=== PATIENT | male | born 1970 | race American Indian/Alaskan Native ===

== ENCOUNTER 2017-05-27 12:45 | Emergency (ER) | payer BC, OTHER ==
[2017-05-27 12:53] VITALS: BMI 38.0
[2017-05-27 12:56] VITALS: TEMP 98
[2017-05-27] MEDS ORDERED: TraMADol/Apap 37.5/325 mg Tab PO STA (13:27)
--- NOTE | 2017-05-27 13:33 | ED PDOC ---
Arrival/HPI - General Chief Complaint: Lower Extremity Problem/Injury Time Seen by Provider: 05/27/17 13:03 Historian: Patient - History of Present Illness Narrative History of Present Illness (Text): 05/27/17 13:20 A 46 year old male, whose past medical history gout, presents to the emergency department complaining of right knee swelling since yesterday. Patient reports when he woke up yesterday, he found his knee swollen and has not been able to ambulate well. 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 He doesn't recall any incident at work that would have caused the swelling. Patient denies of any fever, chest pain, shortness of breath, or any other complaints. Also, patient notes having taken Motrin, which slightly helped with associated pain. No PMD Time/Duration: 24 hours Symptom Onset: Sudden Symptom Course: Unchanged Past Medical History - Provider Review Nursing Documentation Reviewed: Yes - Infectious Disease Hx of Infectious Diseases: None - Tetanus Immunization Tetanus Immunization: Unknown - Cardiac Hx Cardiac Disorders: Yes Hx Hypertension: Yes - Pulmonary Hx Respiratory Disorders: No - Neurological Hx Neurological Disorder: No - HEENT Hx HEENT Disorder: No - Renal Hx Renal Disorder: No - Endocrine/Metabolic Hx Endocrine Disorders: No - Hematological/Oncological Hx Blood Disorders: No - Integumentary Hx Dermatological Disorder: No - Musculoskeletal/Rheumatological Hx Gout: Yes (hx of) - Gastrointestinal Hx Gastrointestinal Disorders: No - Genitourinary/Gynecological Hx Genitourinary Disorders: No - Psychiatric Hx Physical Abuse: No Hx Substance Use: No - Past Surgical History Past Surgical History: No Previous - Anesthesia Hx Anesthesia: No Hx Anesthesia Reactions: No Hx Malignant Hyperthermia: No - Suicidal Assessment Feels Threatened In Home Enviroment: No Family/Social History - Physician Review Nursing Documentation Reviewed: Yes Family/Social History: No Known Family HX Smoking Status: Light Smoker < 10 Cigarettes Daily Hx Alcohol Use: Yes Hx Substance Use: No Hx Substance Use Treatment: No Allergies/Home Meds Allergies/Adverse Reactions: Allergies No Known Allergies Allergy (Verified 05/27/17 12:53) Home Medications: Home Meds Medication Instructions Recorded Confirmed No Known Home Med 05/27/17 05/27/17 Review of Systems - Review of Systems Constitutional: absent: Fevers Respiratory: absent: SOB Cardiovascular: absent: Chest Pain Musculoskeletal: Joint Swelling (right knee swelling with associated pain) Physical Exam Vital Signs Reviewed: Yes Vital Signs Temp Pulse Resp BP Pulse Ox 05/27/17 12:55 98.0 F 76 19 162/98 H 94 L Temperature: Afebrile Blood Pressure: Hypertensive Pulse: Regular Respiratory Rate: Normal Appearance: Positive for: Well-Appearing Pain Distress: None Mental Status: Positive for: Alert and Oriented X 3 Medical Decision Making ED Course and Treatment: 05/27/17 13:26 Impression: 46 year old male with right knee swelling with associated pain. No erythema with FROM with no evidence of infection. Differential: Sprain vs gout Plan: -- Right Knee X-ray -- Colocrys -- Toradol -- Ultracet -- Reassess and disposition Prior Visits: Notes and results from previous visits were reviewed. Patient was last seen in the emergency department on 12/15/2015 for left foot pain. Patient was discharged. Progress Notes: 05/27/2017 Right Knee X-Ray IMPRESSION: No interval fracture or lytic lesion. Interval anterior superior patellar cortical spurring - blending quadriceps tendon insertional enthesophyte Trace lateral patellar [id number] Dictator: Janice Chu MD 05/27/17 14:51 Patient is feeling much better s/p meds and is ambulating well. x-ray as noted - will d/c on nsaid, colchicine, and tramadol and knee immobilizer and f/u ortho. - RAD Interpretation Radiology Orders: 05/27/17 13:29 KNEE W PATELLA RIGHT 3 VIEW [RAD] Stat - Medication Orders Current Medication Orders: Discontinued Medications Colchicine (Colocrys) 1.2 mg PO ONCE STA Stop: 05/27/17 13:29 Last Admin: 05/27/17 14:06 Dose: 1.2 mg Ketorolac Tromethamine (Toradol) 60 mg IM STAT STA Stop: 05/27/17 13:28 Last Admin: 05/27/17 14:05 Dose: 60 mg [facility] [place] Pain Assessment Document 05/27/17 14:05 HI (Rec: 05/27/17 14:06 [email or web address]) Pain Reassessment Is this a pain reassessment? No Sleep Is patient sleeping during reassessment? No Presence of Pain Presence of Pain Yes Pain Scale Used Pain Scale Used Numeric Location Left, Right or Bilateral Right Pain Location Body Site Knee IM Administration Charges Document 05/27/17 14:05 HI (Rec: 05/27/17 14:06 [email or web address]) Charges for Administration # of IM Administrations 1 Tramadol/Acetaminophen (Ultracet 37.5/325 Mg) 2 tab PO STAT STA Stop: 05/27/17 13:28 Last Admin: 05/27/17 14:06 Dose: 2 tab MAR Pain Assessment Document 05/27/17 14:06 HI (Rec: 05/27/17 14:06 [place] [email or web address]) Pain Reassessment Is this a pain reassessment? No Sleep Is patient sleeping during reassessment? No Presence of Pain Presence of Pain Yes Pain Scale Used Pain Scale Used Numeric Location Left, Right or Bilateral Right Pain Location Body Site Knee - Scribe Statement The provider has reviewed the documentation as recorded by the Ravin Boyd Provider Scribe Attestation: All medical record entries made by the Scribe were at my direction and personally dictated by me. I have reviewed the chart and agree that the record accurately reflects my personal performance of the history, physical exam, medical decision making, and the department course for this patient. I have also personally directed, reviewed, and agree with the discharge instructions and disposition. Disposition/Present on Arrival - Present on Arrival Any Indicators Present on Arrival: No History of DVT/PE: No History of Uncontrolled Diabetes: No Urinary Catheter: No History of Decub. Ulcer: No History Surgical Site Infection Following: None - Disposition Have Diagnosis and Disposition been Completed?: Yes Diagnosis: Knee pain, Enthesopathy, knee Disposition: HOME/ ROUTINE Disposition Time: 14:50 Patient Plan: Discharge Condition: GOOD Discharge Instructions (ExitCare): Knee Pain (ED) Forms: [employer] (Khmer)
--- NOTE | 2017-05-27 14:20 | RAD ---
PROCEDURE: Right Knee Radiographs. HISTORY: R knee pain and swelling COMPARISON: 09/21/2014 FINDINGS: BONES: No fracture. Interval progressive anterior superior patellar cortical spurring/ blending quadriceps tendon insertional enthesophyte. JOINTS: No osteoarthritis. JOINT EFFUSION: None. OTHER FINDINGS: Trace lateral patellar tilt similar appearing IMPRESSION: No interval fracture or lytic lesion. Interval anterior superior patellar cortical spurring - blending quadriceps tendon insertional enthesophyte Trace lateral patellar [id number]
[2017-05-27 15:44] VITALS: BP 160/82; PULSE 70; RESP 16; O2SAT 100
== END 2017-05-27 15:10 | disposition home or self-care (01) ==
LOC: ED 12:45
DX: M25.561 Pain in right knee (principal); M76.9 Unspecified enthesopathy, lower limb, excluding foot
CPT/HCPCS: 73562; 96372; 99283; J1885

== ENCOUNTER 2018-05-12 15:47 | Emergency (ER) | payer BC ==
[2018-05-12 15:47] VITALS: BMI 38.0
[2018-05-12 16:07] VITALS: BP 115/75; O2SAT 98
--- NOTE | 2018-05-12 16:35 | ED PDOC ---
Arrival/HPI - General Chief Complaint: Lower Extremity Problem/Injury Time Seen by Provider: 05/12/18 16:33 Historian: Patient - History of Present Illness Narrative History of Present Illness (Text): 05/12/18 16:34 47yo male with no pmhx who present with complaint of right knee pain x 3weeks. States he saw his PMD for the knee pain and was referred for knee xray and uric acid level was drawn. He did the xray today and came to ED for analgesic. States he took Ibuprofen last night and this morning with relieve. Notes that pain is usually with ambulation. Denies trauma, redness, fever, any other complaint. Past Medical History - Provider Review Nursing Documentation Reviewed: Yes - Infectious Disease Hx of Infectious Diseases: None - Tetanus Immunization Tetanus Immunization: Unknown - Cardiac Hx Cardiac Disorders: No - Pulmonary Hx Respiratory Disorders: No - Neurological Hx Neurological Disorder: No - HEENT Hx HEENT Disorder: No - Renal Hx Renal Disorder: No - Endocrine/Metabolic Hx Endocrine Disorders: No - Hematological/Oncological Hx Blood Disorders: No - Integumentary Hx Dermatological Disorder: No - Musculoskeletal/Rheumatological Hx Gout: Yes (hx of) - Gastrointestinal Hx Gastrointestinal Disorders: No - Genitourinary/Gynecological Hx Genitourinary Disorders: No - Psychiatric Hx Physical Abuse: No Hx Substance Use: No - Past Surgical History Past Surgical History: No Previous - Anesthesia Hx Anesthesia: No Hx Anesthesia Reactions: No Hx Malignant Hyperthermia: No - Suicidal Assessment Feels Threatened In Home Enviroment: No Family/Social History - Physician Review Nursing Documentation Reviewed: Yes Family/Social History: Unknown Family HX Smoking Status: Light Smoker < 10 Cigarettes Daily Hx Alcohol Use: Yes Frequency of alcohol use: Socially Hx Substance Use: No Hx Substance Use Treatment: No Allergies/Home Meds Allergies/Adverse Reactions: Allergies No Known Allergies Allergy (Verified 05/27/17 12:53) Review of Systems - Physician Review All systems were reviewed & negative as marked: Yes - Review of Systems Constitutional: Normal Eyes: Normal ENT: Normal Respiratory: Normal Cardiovascular: Normal Gastrointestinal: Normal Genitourinary Male: Normal Musculoskeletal: Arthralgias (Right knee pain) Skin: Normal Neurological: Normal Endocrine: Normal Hemo/Lymphatic: Normal Psychiatric: Normal Physical Exam Vital Signs Reviewed: Yes Vital Signs Temp Pulse Resp BP Pulse Ox 05/12/18 17:19 98.2 F 87 19 98 05/12/18 16:03 98.9 F 84 18 115/75 98 Temperature: Afebrile Blood Pressure: Normal Pulse: Regular Respiratory Rate: Normal Appearance: Positive for: Well-Appearing, Non-Toxic, Comfortable Pain Distress: None Mental Status: Positive for: Alert and Oriented X 3 - Systems Exam Head: Present: Atraumatic, Normocephalic Pupils: Present: PERRL Extroacular Muscles: Present: EOMI Conjunctiva: Present: Normal Mouth: Present: Moist Mucous Membranes Neck: Present: Normal Range of Motion Respiratory/Chest: Present: Clear to Auscultation, Good Air Exchange. No: Respiratory Distress, Accessory Muscle Use Cardiovascular: Present: Regular Rate and Rhythm, Normal S1, S2. No: Murmurs Abdomen: No: Tenderness, Distention, Peritoneal Signs Back: Present: Normal Inspection Upper Extremity: Present: Normal Inspection. No: Cyanosis, Edema Lower Extremity: Present: NORMAL PULSES, Normal ROM, Neurovascularly Intact. No : Edema, Tenderness, Swelling Neurological: Present: GCS=15, CN II-XII Intact, Speech Normal Skin: Present: Warm, Dry, Normal Color. No: Rashes Psychiatric: Present: Alert, Oriented x 3, Normal Insight, Normal Concentration Medical Decision Making ED Course and Treatment: 05/12/18 19:33 PT presented for stated history. He ambulated to the ED. No erythema. No sign of cellulitis was noted. His xray ordered by his PMD was reviewed and DJD was noted. Case was DW Dr. Constantino, while he was in ED and he stated that he will see pt tomorrow in the office. Pt's pain improved in ED with medication and he was instructed to f/u with Dr. Constantino tomorrow. - Medication Orders Current Medication Orders: Discontinued Medications Ketorolac Tromethamine (Toradol) 60 mg IM STAT STA Stop: 05/12/18 16:35 Last Admin: 05/12/18 17:06 Dose: 60 mg [facility] Pain Assessment Document 05/12/18 17:06 [email or web address] (Rec: 05/12/18 17:07 [email or web address] [id number]) Pain Reassessment Is this a pain reassessment? No Sleep Is patient sleeping during reassessment? No Presence of Pain Presence of Pain Yes Pain Scale Used Pain Scale Used Numeric Location Left, Right or Bilateral Right Pain Location Body Site Knee Description Description Constant Intensity of Pain at present 7 Pain Behavior Facial Grimacing Aggravating Factors Changing Position Alleviating Factors/Management Medication Techniques Alleviating Factors Medication IM Administration Charges Document 05/12/18 17:06 [email or web address] (Rec: 05/12/18 17:07 [email or web address] [id number]) Injection Site MAR Injection Site Right Gluteus Best Charges for Administration # of IM Administrations 1 Tramadol HCl (Ultram) 50 mg PO STAT STA Stop: 05/12/18 16:37 Last Admin: 05/12/18 16:49 Dose: 50 mg MAR Pain Assessment Document 05/12/18 16:49 [email or web address] (Rec: 05/12/18 16:51 [email or web address] [id number]) Pain Reassessment Is this a pain reassessment? No Sleep Is patient sleeping during reassessment? No Presence of Pain Presence of Pain Yes Pain Scale Used Pain Scale Used Numeric Location Left, Right or Bilateral Right Pain Location Body Site Knee Description Description Constant Intensity of Pain at present 7 Pain Behavior Facial Grimacing Aggravating Factors Changing Position Alleviating Factors/Management Position Change Techniques Alleviating Factors Medication Disposition/Present on Arrival - Present on Arrival Any Indicators Present on Arrival: No History of DVT/PE: No History of Uncontrolled Diabetes: No Urinary Catheter: No History of Decub. Ulcer: No History Surgical Site Infection Following: None - Disposition Have Diagnosis and Disposition been Completed?: Yes Diagnosis: Knee pain Disposition: HOME/ ROUTINE Disposition Time: 17:00 Patient Plan: Discharge Condition: STABLE Discharge Instructions (ExitCare): Knee Pain (DC) Additional Instructions: Follow up with orthopedist, Dr. Frias tomorrow Return to ED for any new or worsening symptoms Prescriptions: Naproxen [Naprosyn] 500 mg PO BID #20 tablet traMADol [Ultram] 50 mg PO Q6 #10 tab Referrals: Julian Frias DO [Staff Provider] - Follow up with primary Forms: [employer] (Hungarian)
[2018-05-12 17:20] VITALS: PULSE 87; RESP 19; TEMP 98.2
== END 2018-05-12 17:20 | disposition home or self-care (01) ==
LOC: ED 15:47
DX: M25.561 Pain in right knee (principal); F17.210 Nicotine dependence, cigarettes, uncomplicated
CPT/HCPCS: 96372; 99282; J1885

== ENCOUNTER 2018-11-26 15:54 | Outpatient (CLI) | payer BC | END 2018-11-26 15:55 | disposition home or self-care (01) | LOC: RAD 15:54 ==